=== PATIENT | female | born 1950 | race Caucasian/White ===

== ENCOUNTER 2018-06-07 13:40 | Emergency (ER) | payer MEDICARE, MEDICAID ==
[~2018-06-07] VITALS: Ht 175.3 cm; Wt 65.0 kg
[~2018-06-07 13:40] MED LIST: ALBU18HF2 INH; DILT240C96 PO; LEVO100T78 PO; LISI-604 PO; OMEP20CA10 PO; PRAV40TA3 PO
[2018-06-07 14:03] VITALS: BP 106/48
[2018-06-07] MEDS ORDERED: ipratropium/albuterol 3ml nebule NEB ONE (14:40)
[2018-06-07] MEDS ORDERED: benzonatate 100mg capsule PO ONE (14:40)
== END 2018-06-07 15:31 | disposition left against medical advice (07) ==
LOC: ER 13:43
DX: R06.03 Acute respiratory distress (principal); R09.02 Hypoxemia; E78.00 Pure hypercholesterolemia, unspecified; I10 Essential (primary) hypertension; F17.200 Nicotine dependence, unspecified, uncomplicated; Z90.49 Acquired absence of other specified parts of digestive tract; Z98.890 Other specified postprocedural states; Z88.6 Allergy status to analgesic agent; Z88.8 Allergy status to other drugs, medicaments and biological substances; Z79.899 Other long term (current) drug therapy
CPT/HCPCS: 99281